=== PATIENT | female | born 1940 ===

== ENCOUNTER 2024-09-18 15:25 | Inpatient (IN) | payer MEDICARE ==
[~2024-09-18] VITALS: Ht 165.1 cm; Wt 63.0 kg
[2024-09-18 10:49] VITALS: BP 135/80; TEMP 98.3
[2024-09-18 11:20] VITALS: BP 135/80; TEMP 98.3
[2024-09-18] MEDS ORDERED: PRAV40TA3 PO (20:34)
[2024-09-18] MEDS ORDERED: LEVE500T83 PO (20:34)
[2024-09-18] MEDS ORDERED: AMLO10TA59 PO (20:34)
[2024-09-18] MEDS ORDERED: LISI10TA29 PO (20:34)
[2024-09-18 20:41] VITALS: BP 130/70; TEMP 97.4; O2SAT 100
[2024-09-19] MEDS ORDERED: LIDO30AD10 TD (05:37)
[2024-09-19 06:16] VITALS: BP 135/80; TEMP 97.4; O2SAT 97
[2024-09-19 07:49] VITALS: BP 138/69; TEMP 98.1; O2SAT 95
[2024-09-19] MEDS: LISINOPRIL 10 MG TABLET PO SCH (08:09)
[2024-09-19] MEDS: AMLODIPINE 10 MG TABLET PO SCH (08:09)
[2024-09-19] MEDS: levETIRAcetam 500 MG TABLET PO SCH (08:09)
[2024-09-19 14:16] LABS: THYROID STIMULATING HORMONE 2.567 mIU/mL (0.358-3.740)
[2024-09-19] MEDS: ACETAMINOPHEN 500 MG TABLET PO PRN (14:37)
[2024-09-19 16:01] VITALS: BP 125/49; TEMP 98.7; O2SAT 98
[2024-09-19] MEDS: OXYCODONE/APAP 5-325 MG TABLET PO PRN (18:48)
[2024-09-19 20:00] VITALS: BP 120/74; TEMP 97.4; O2SAT 99
[2024-09-19] MEDS: ATORVASTATIN 10 MG TABLET PO SCH (20:18)
[2024-09-20 06:00] VITALS: BP 141/66; TEMP 97.5; O2SAT 95
[2024-09-20 08:08] LABS: BASOPHILS % (AUTO) 0.5 % (0.0-2.0); EOSINOPHILS # (AUTO) 0.1 K/uL (0.0-0.7); EOSINOPHILS % (AUTO) 1.3 % (0.0-7.0); HEMATOCRIT 39.2 % (31.2-41.9); HEMOGLOBIN 13.7 g/dL (10.9-14.3); LYMPHOCYTES # (AUTO) 1.1 K/uL (0.8-4.8); LYMPHOCYTES % (AUTO) 10.9 % (20.5-51.5); MEAN CORPUSCULAR HEMOGLOBIN 32.5 uug (24.7-32.8); MEAN CORPUSCULAR HGB CONC 35 g/dL (32.3-35.6); MEAN CORPUSCULAR VOLUME 92.9 fL (75.5-95.3); MONOCYTES # (AUTO) 0.8 K/uL (0.1-1.30); MONOCYTES % (AUTO) 7.9 % (0.0-11.0); NEUTROPHILS # (AUTO) 7.9 K/uL (1.8-8.9); NEUTROPHILS % (AUTO) 79.4 % (38.5-71.5); PLATELET COUNT (AUTO) 360 K/uL (179-408); RED BLOOD CELL COUNT(AUTO) 4.22 MIL/uL (3.63-4.92); RED CELL DISTRIBUTION WIDTH 12.8 % (12.3-17.7)
[2024-09-20 08:25] LABS: CALCIUM 9.2 mg/dL (8.5-10.1); CARBON DIOXIDE 27 mmol/L (21-32); CHLORIDE 95 mmol/L (98-107); CREATININE 0.6 mg/dL (0.6-1.3); GLUCOSE 154 mg/dL (74-106); POTASSIUM 3.7 mmol/L (3.5-5.1); SODIUM SERUM 132 mmol/L (136-145); UREA NITROGEN, BLOOD 26 mg/dL (7-18)
[2024-09-20 08:28] VITALS: BP 126/61; TEMP 98.8; O2SAT 93
[2024-09-20 08:33] LABS: DIFFERENTIAL COMMENT 1
[2024-09-20] MEDS: OXYCODONE HCL 5 MG TABLET PO SCH ×2 (09:07→12:52)
[2024-09-20 16:29] VITALS: BP 117/53; TEMP 98.1; O2SAT 91
[2024-09-20] MEDS ORDERED: BISACODYL 5 MG TABLET.DR PO PRN (19:30)
[2024-09-20 21:06] VITALS: BP 117/62; TEMP 98.2; O2SAT 99
[2024-09-21 06:09] VITALS: BP 122/74; TEMP 97.8; O2SAT 98
[2024-09-21 07:38] VITALS: BP 135/66; TEMP 97.6; O2SAT 97
[2024-09-21] MEDS: OXYCODONE/APAP 5-325 MG TABLET PO PRN (15:01)
[2024-09-21 15:57] VITALS: BP 112/72; TEMP 97.8; O2SAT 97
[2024-09-21] MEDS: ENSURE ENLIVE (VAN) 240 ML LIQUID PO SCH (16:40)
[2024-09-21] MEDS: HYDROCORTISONE 1% CREAM 30 GM TUBE TP PRN (17:22)
[2024-09-21 20:26] VITALS: BP 103/57; TEMP 97.7; O2SAT 96
[2024-09-22 06:01] VITALS: BP 135/73; TEMP 97.6; O2SAT 98
[2024-09-22 08:00] VITALS: BP 116/64; TEMP 98; O2SAT 96
[2024-09-22 17:00] VITALS: BP 126/65; TEMP 97.7; O2SAT 97
[2024-09-22 19:26] VITALS: BP 96/57; TEMP 98; O2SAT 98
[2024-09-22] MEDS: BISACODYL 5 MG TABLET.DR PO ONE (20:23)
[2024-09-23 06:37] VITALS: BP 108/52; TEMP 97.9; O2SAT 98
[2024-09-23 08:00] VITALS: TEMP 98.1
[2024-09-23] MEDS: DOCUSATE SODIUM 250 MG CAPSULE PO SCH (08:10)
[2024-09-23 17:10] VITALS: BP 120/65; TEMP 98; O2SAT 95
[2024-09-23 19:54] VITALS: BP 110/55; TEMP 98.1; O2SAT 95
[2024-09-23] MEDS: BISACODYL 5 MG TABLET.DR PO PRN (21:17)
[2024-09-23] MEDS: diphenhydrAMINE 25 MG CAP PO PRN (23:34)
[2024-09-24 06:30] VITALS: BP 110/56; TEMP 98.3; O2SAT 96
[2024-09-24 07:49] VITALS: BP 116/62; TEMP 97.8; O2SAT 96
[2024-09-25 05:57] VITALS: BP 113/60; TEMP 97.8; O2SAT 97
[2024-09-25 08:27] VITALS: BP 127/64; TEMP 97.6; O2SAT 96
[2024-09-25 16:03] VITALS: BP 115/44; TEMP 98.3; O2SAT 98
[2024-09-25] MEDS: ACETAMINOPHEN/CODEINE 300-30 MG TABLET PO PRN (17:58)
[2024-09-25 20:16] VITALS: BP 116/63; TEMP 97.8; O2SAT 95
[2024-09-26 06:36] VITALS: BP 122/61; TEMP 97.6; O2SAT 94
[2024-09-26 08:00] VITALS: BP 113/65; TEMP 97.8; O2SAT 95
[2024-09-26 16:00] VITALS: BP 126/64; TEMP 98.3; O2SAT 98
[2024-09-27 00:22] VITALS: BP 100/58; TEMP 98.2; O2SAT 94
[2024-09-27 05:25] VITALS: BP 110/56; TEMP 98; O2SAT 97
[2024-09-27 08:00] VITALS: BP 134/75; O2SAT 97
[2024-09-27] MEDS: MODAFINIL 100 MG TABLET PO SCH (09:30)
[2024-09-27] MEDS: ENSURE ENLIVE (VAN) 240 ML LIQUID PO SCH (09:34)
[2024-09-27 16:19] VITALS: BP 121/73; TEMP 98.1; O2SAT 98
[2024-09-27 20:00] VITALS: BP 107/62; TEMP 98; O2SAT 97
[2024-09-28 05:00] VITALS: BP 118/69; TEMP 98; O2SAT 96
[2024-09-28 08:00] VITALS: BP 105/58; O2SAT 97
[2024-09-28 17:00] VITALS: BP 114/69; O2SAT 97
[2024-09-28 19:27] VITALS: BP 103/54; TEMP 98.3; O2SAT 96
[2024-09-29 05:03] VITALS: BP 113/63; TEMP 98.2; O2SAT 97
[2024-09-29 08:00] VITALS: BP 110/53; TEMP 97.5; O2SAT 98
[2024-09-29] MEDS: MAGNESIUM HYDROXIDE 30 ML LIQUID UDC PO PRN (13:09)
[2024-09-29 16:13] VITALS: BP 128/65; TEMP 98; O2SAT 97
[2024-09-29 21:48] VITALS: BP 100/59; TEMP 98.4; O2SAT 96
[2024-09-30 06:26] VITALS: BP 110/49; TEMP 97.9; O2SAT 94
[2024-09-30 08:28] VITALS: BP 108/54; TEMP 97.5; O2SAT 98
[2024-09-30 16:11] VITALS: BP 118/62; TEMP 98.1; O2SAT 95
[2024-09-30] MEDS: BISACODYL 10 MG SUPP.RECT RC PRN (19:53)
[2024-09-30 21:39] VITALS: BP 107/63; TEMP 97.8; O2SAT 95
[2024-10-01 07:08] VITALS: BP 113/49; TEMP 97.4; O2SAT 95
[2024-10-01 08:00] VITALS: BP 111/57; TEMP 97.8; O2SAT 100
[2024-10-01] MEDS ORDERED: DICYCLOMINE HCL 20 MG/2 ML AMPUL IM PRN (13:00)
[2024-10-01] MEDS: BISACODYL 10 MG SUPP.RECT RC ONE (13:04)
[2024-10-01 15:45] VITALS: BP 126/70; TEMP 97.2; O2SAT 97
[2024-10-01 21:24] VITALS: BP 131/69; TEMP 97.9; O2SAT 95
[2024-10-02 07:43] VITALS: BP 115/61; TEMP 97.5; O2SAT 94
[2024-10-02] MEDS: MIRALAX 17 GM POWD.PACK PO SCH (08:21)
[2024-10-02 19:30] VITALS: BP 99/46; TEMP 98.1; O2SAT 97
[2024-10-02] MEDS: SHARK LIVER OIL/PETROLAT OINT 60 GM TUBE RC PRN (20:35)
[2024-10-03 06:44] VITALS: BP 105/61; TEMP 98.3; O2SAT 97
[2024-10-03 08:00] VITALS: BP 104/64; TEMP 98.1; O2SAT 96
[2024-10-03 16:33] VITALS: BP 109/64; TEMP 97.6; O2SAT 97
[2024-10-03 20:00] VITALS: BP 108/53; TEMP 98; O2SAT 95
[2024-10-04 06:00] VITALS: BP 110/62; TEMP 98.2; O2SAT 95
[2024-10-04 08:00] VITALS: BP 120/70; O2SAT 99
[2024-10-04 17:00] VITALS: BP 124/65; TEMP 98; O2SAT 99
[2024-10-04 22:58] VITALS: BP 103/52; TEMP 97.6; O2SAT 95
[2024-10-05 06:52] VITALS: BP 112/70; TEMP 97.6; O2SAT 97
[2024-10-05 08:00] VITALS: BP 116/66; TEMP 98; O2SAT 99
[2024-10-05 16:11] VITALS: BP 112/61; TEMP 98.1; O2SAT 97
[2024-10-05 19:22] VITALS: BP 101/49; TEMP 98; O2SAT 95
[2024-10-06 04:50] VITALS: BP 118/53; TEMP 98; O2SAT 96
[2024-10-06 08:00] VITALS: BP 129/68; TEMP 97.5; O2SAT 97
[2024-10-06 17:00] VITALS: BP 116/64; TEMP 97.2; O2SAT 99
[2024-10-06 18:20] VITALS: BP 104/47
[2024-10-06 20:42] VITALS: BP 110/44; TEMP 98.1; O2SAT 95
[2024-10-07 06:55] VITALS: BP 108/47; TEMP 98.3; O2SAT 95
[2024-10-07 08:00] VITALS: TEMP 97.4
[2024-10-07 08:35] LABS: BASOPHILS # (AUTO) 0.1 K/UL (0.0-0.2); BASOPHILS % (AUTO) 1.1 % (0.0-2.0); EOSINOPHILS # (AUTO) 0.4 K/uL (0.0-0.7); EOSINOPHILS % (AUTO) 6.7 % (0.0-7.0); HEMATOCRIT 34.3 % (31.2-41.9); HEMOGLOBIN 11.8 g/dL (10.9-14.3); LYMPHOCYTES # (AUTO) 1.5 K/uL (0.8-4.8); LYMPHOCYTES % (AUTO) 23.6 % (20.5-51.5); MEAN CORPUSCULAR HEMOGLOBIN 32.7 uug (24.7-32.8); MEAN CORPUSCULAR HGB CONC 34 g/dL (32.3-35.6); MEAN CORPUSCULAR VOLUME 95.1 fL (75.5-95.3); MONOCYTES # (AUTO) 0.5 K/uL (0.1-1.30); MONOCYTES % (AUTO) 8.1 % (0.0-11.0); NEUTROPHILS # (AUTO) 3.9 K/uL (1.8-8.9); NEUTROPHILS % (AUTO) 60.5 % (38.5-71.5); PLATELET COUNT (AUTO) 230 K/uL (179-408); RED CELL DISTRIBUTION WIDTH 13.7 % (12.3-17.7); WHITE BLOOD COUNT (AUTO) 6.4 K/uL (3.8-11.8)
[2024-10-07 08:47] LABS: CALCIUM 9.1 mg/dL (8.5-10.1); CARBON DIOXIDE 29 mmol/L (21-32); CHLORIDE 105 mmol/L (98-107); CREATININE 0.5 mg/dL (0.6-1.3); DIFFERENTIAL COMMENT 1; GLUCOSE 100 mg/dL (74-106); POTASSIUM 3.2 mmol/L (3.5-5.1); SODIUM SERUM 140 mmol/L (136-145); UREA NITROGEN, BLOOD 23 mg/dL (7-18)
[2024-10-07] MEDS: POTASSIUM CHLORIDE 20 MEQ TAB.PRT.SR PO ONE (12:41)
[2024-10-07 16:00] VITALS: TEMP 97.9
[2024-10-07 20:14] VITALS: BP 108/53; TEMP 98.2; O2SAT 94
[2024-10-08 05:00] VITALS: BP 102/56; TEMP 98.1; O2SAT 97
[2024-10-08 07:52] VITALS: BP 116/64; TEMP 97.3; O2SAT 97
[2024-10-08 08:59] VITALS: BP 116/69
== END 2024-10-08 14:30 | DRG 56 ==
PROVIDERS: ADMIT Physical Medicine & Rehabilitation Pain Medicine; ATTEND Physical Medicine & Rehabilitation Pain Medicine
DX: I69.198 Other sequelae of nontraumatic intracerebral hemorrhage (principal); G93.41 Metabolic encephalopathy; G93.49 Other encephalopathy; I69.154 Hemiplegia and hemiparesis following nontraumatic intracerebral hemorrhage affecting left non-dominant side; E78.5 Hyperlipidemia, unspecified; I10 Essential (primary) hypertension; H54.62 Unqualified visual loss, left eye, normal vision right eye; I16.0 Hypertensive urgency; K59.00 Constipation, unspecified; M54.9 Dorsalgia, unspecified; R53.81 Other malaise
CPT/HCPCS: 36415; 70450; 74021; 83921; 84443; 85025; 97535-GO-CO; A9150; Q0163